=== PATIENT | male | born 1970 | race Caucasian/White ===

== ENCOUNTER 2017-02-24 17:14 | Emergency (ER) | payer BC, OTHER ==
[~2017-02-24] VITALS: Ht 180.3 cm; Wt 109.0 kg
[~2017-02-24 17:14] MED LIST: ANDROGEL TOP
[2017-02-24 17:16] VITALS: TEMP 36.9; Ht 180.3 cm; Wt 109.0 kg
[2017-02-24] MEDS ORDERED: ANDG TOP (17:27)
[2017-02-24] MEDS ORDERED: HYDROCODONE/ACETAMOPHEN 5/325MG TAB PO ONE (17:45)
--- NOTE | 2017-02-24 18:10 | DIAGNOSTIC IMAGING REPORT ---
RIGHT ELBOW MIN 3 VIEWS ROUTINE CLINICAL HISTORY: Right elbow pain. Possible biceps tendon tear. COMPARISON: None. DISCUSSION: No fractures or dislocations are visualized. If further evaluation of the suspected biceps tendon tear is desired, an MRI is considered the test of choice IMPRESSION: No fractures or dislocations identified. Electronically signed by: Jin Hernandez M.D. 02/24/2017 6:09 PM Dictated Date/Time: 02/24/2017 6:08 PM
[2017-02-24] MEDS ORDERED: HYDR-5688 PO (18:27)
[2017-02-24] MEDS ORDERED: NORCO 5/325MG HOME PACK PO ONE (18:30)
[2017-02-24 19:01] VITALS: BP 134/78; PULSE 72; O2SAT 98
--- NOTE | 2017-02-24 23:52 | EMERGENCY ROOM VISIT NOTE ---
ED Visit Note First contact with patient: 17:23 Chief Complaint: I think I tore something in my right arm. History of Present Illness: Mr. Nelson is a 48-year-old white male who ambulates into the ED accompanied by female friend planning of anterior right elbow/proximal forearm pain. Patient reports approximately 2 hours ago he was cutting down trees at his home to make way for a garage. He reports he picked up a log from the ground and threw the log off to the side. He reports when he did this he felt a tearing sensation in the anterior aspect of the right elbow. Since that time he has been having pain in the same area. He describes the pain as achy and burning. He rates his discomfort 8/10. His pain is nonradiating. His pain worsens with palpations in all movements of the elbow. He has not identified any alleviating factors related to the pain. He has not taken any medications for pain prior to arrival at the hospital. He denies any associated shoulder pain, upper arm pain, wrist pain, finger weakness /numbness/tingling. He denies any previous injuries or surgeries to this area. Review of Systems: As noted above in history of present illness. Past Medical History: Patient denies. Current Medications: Androgel. Allergies to Medications: Codeine; patient does not know the reaction, but recently reports he has taken hydrocodone for dental work and has had no allergic reactions. Social History: Patient is currently employed; he feels safe in his home environment; he admits to tobacco and alcohol use. Physical Examination: Vital Signs: Date Time Temp Pulse Resp B/P (MAP) Pulse Ox O2 Delivery O2 Flow Rate FiO2 02/24/17 19:01 72 18 134/78 98 02/24/17 17:16 36.9 90 20 130/85 99 Room Air GENERAL: 47-year-old male in mild to moderate distress due to pain, nontoxic- appearing, afebrile and hemodynamically stable. NEUROLOGICAL: Awake, alert and oriented to person, place and time. Answering questions appropriately and following commands. SKIN: Warm, dry and pink. No soft tissue eruptions or trauma noted. RIGHT UPPER EXTREMITY: No gross bony deformity. No tenderness in the shoulder or upper arm. In the upper arm there is bulging of the biceps muscle. Tenderness over the anterior elbow in the area of the biceps tendon insertion on the forearm; also the tendon is not palpable. No tenderness throughout the lateral or posterior elbow, forearm, wrist or hand. Patient refused range of motion exercises due to pain. The elbow was stabilized he does have full range of motion in flexion, extension and radial and ulnar deviation of the wrist and flexion and extension of all fingers. Throughout the hand the skin was warm and pink and capillary refill is brisk. He was able to distinguish light sensations through all dermatomes. ED Course: Patient is assessed as noted above. Patient's medication list was reviewed. Patient was given ice in one Brillion tablet 5/325 mg by mouth for pain. Right Elbow X-Rays: Was read by myself and the radiologist showing no acute fractures or dislocations. Patient's case was reviewed with Dr. Rehman; we agreed and diagnostic approach, treatment, disposition and plan. He did recommend that I consult Dr. Ruff. Patient's case was consulted with Dr. Ruff. He needed no additional imaging studies. He recommended elbow mobilization and sling with office follow-up. Patient was placed in a posterior elbow splint in position of comfort and then into a simple elbow sling. Patient was educated about today's findings and instructed on his treatment plan ; he verbalized understanding and agreement with this plan. Clinical Impression: Right biceps brachii distal tendon rupture. Disposition: Patient discharged home in stable condition; prior to departure he was reassessed and subjectively reported he was feeling better and rated his discomfort 4/10. Plan: Comfort measures including rest, ice, splint and sling use and a sliding pain scale of acetaminophen and Brillion were discussed with the patient; patient was given appropriate narcotic precautions and his name was checked on state database and no red flags are noted. Patient was encouraged to follow-up with Dr. Calix for definitive care and treatment. Patient was encouraged return ED for worsening/uncontrolled pain, uncontrolled swelling, arm/finger weakness/numbness/tingling or any new/concerning symptoms.
[2017-02-28] MEDS ORDERED: OXYC-57 PO (13:07)
== END 2017-02-24 19:03 | disposition home or self-care (01) ==
LOC: C.EDB 17:14 → C.EDD 19:03
DX: S46.211A Strain of muscle, fascia and tendon of other parts of biceps, right arm, initial encounter (principal); X50.9XXA Other and unspecified overexertion or strenuous movements or postures, initial encounter; Y93.H9 Activity, other involving exterior property and land maintenance, building and construction; Y99.8 Other external cause status; Y92.009 Unspecified place in unspecified non-institutional (private) residence as the place of occurrence of the external cause; Z72.0 Tobacco use

== ENCOUNTER → 2017-02-25 | Outpatient (CLI) | payer OTHER ==
[~2017-02-25] MED LIST changes: +ANDG TOP; -ANDROGEL TOP; +HYDR-5688 PO; +OXYC-57 PO
[2017-02-25 16:46] LABS: BASO % 0.3 %; BASO ABS # 0.03 K/uL (0-0.2); COMPLETE YES; HEMATOCRIT 45.1 % (42-52); IG% 0.4 %; LYMPH % 28.6 %; LYMPH ABS # 2.58 K/uL (1.2-3.4); MEAN CELL VOLUME 78.4 fL (80-100); MEAN CORPUSCULAR HEMOGLOBIN 24.7 pg (25-34); MEAN CORPUSCULAR HGB CONC 31.5 g/dl (32-36); MEAN PLATELET VOLUME 10.3 fL (7.4-10.4); MONO % 5.2 %; NEUT % 64.5 %; PLATELET COUNT 208 K/uL (130-400); RED BLOOD COUNT 5.75 M/uL (4.7-6.1); WHITE BLOOD COUNT 9.03 K/uL (4.8-10.8)
[2017-02-25 16:54] LABS: BLOOD UREA NITROGEN 16 mg/dl (7-18); BUN/CREATININE RATIO 15.9 (10-20); CALCIUM 8.6 mg/dl (8.5-10.1); CARBON DIOXIDE 29 mmol/L (21-32); CHLORIDE 108 mmol/L (98-107); GLUCOSE 80 mg/dl (70-99); POTASSIUM 3.9 mmol/L (3.5-5.1); SODIUM 141 mmol/L (136-145)
== END | disposition home or self-care (01) ==
LOC: C.LABBC 14:44
PROVIDERS: ATTEND Orthopaedic Surgery
DX: S46.211D Strain of muscle, fascia and tendon of other parts of biceps, right arm, subsequent encounter (principal); X58.XXXD Exposure to other specified factors, subsequent encounter

== ENCOUNTER → 2017-02-28 | Day surgery (SDC) | payer OTHER ==
[2017-02-27 07:32] VITALS: BMI 31.0
[~2017-02-28] VITALS: Ht 180.3 cm; Wt 108.4 kg
[~2017-02-28] MED LIST changes: +ATROPINE SULFATE 0.1 MG/ML 5ML SYR IV PRN; +BUPIVACAINE/EPINEPHRINE 0.25% 1:200,000 30 ML VIAL ONE; +CEFAZOLIN 1000MG/55 ML D5W IV SCH; +CEFAZOLIN 2000 MG/60 ML D5W IV SCH; +DEXAMETHASONE SOD INJ 4 MG/ML VIAL ONE; +EpHEDrine SULFATE INJ 50 MG/ML AMP IV PRN; +FENTANYL CITRATE INJ 50 MCG/1 ML 2 ML VIAL IV PRN; +FENTANYL CITRATE INJ 50 MCG/1 ML 2 ML VIAL ONE; +LACTATED RINGER'S 1000ML 1,000 ML IV SCH; +LIDOCAINE HCL 2% 2 ML VIAL (20MG/ML) ONE; +MIDAZOLAM HCL 1 MG/ML 2ML VIAL ONE; +ONDANSETRON INJ 2 MG/ML 2 ML VIAL IV PRN; +ONDANSETRON INJ 2 MG/ML 2 ML VIAL ONE; +OXYCODONE/ACETAMINOPHEN 5-325 TAB PO PRN; +PROPOFOL IV EMULSION 10 MG/ML 20 ML VIAL IV ONE; +ROPIVACAINE 0.5% 5 MG/ML 30 ML VIAL ONE; +SODIUM CHLORIDE 0.9% 1000ML 1,000 ML IV SCH
[2017-02-28 09:56] VITALS: Ht 180.3 cm; Wt 108.4 kg
--- NOTE | 2017-02-28 09:56 | History & Physical Bridge - [place] ---
H&P Re-Evaluation Bridge Note: I have examined the patient, reviewed the History & Physical and in the interval since the performance of the History & Physical I have noted the following changes of clinical significance: No changes noted
--- NOTE | 2017-02-28 13:09 | Discharge Instructions-SurgCtr ---
Discharge Instructions Date of Service Feb 28, 2017. Visit Reason for Visit: DISTAL BICEPS REPAIR Discharge Discharge Diagnosis / Problem: SAME ABOVE Discharge Goals Goal(s): Decrease discomfort, Improve function Activity Recommendations Activity Limitations: as noted below Lifting Limitations: until after follow-up appointment Exercise/Sports Limitations: until after follow-up appointment Shower/Bathe: keep incision dry Anesthesia . Post Anesthesia Instructions: If you have had General Anesthesia or IV Sedation: * Do not drive today. * Resume driving when surgeon permits. * Do not make important decisions or sign legal documents today. * Call surgeon for: 1. Temperature elevations greater than 101 degrees F. 2. Uncontrollable pain. 3. Excessive bleeding. 4. Persistent nausea and vomiting. 5. Medication intolerance (nausea, vomiting or rash). * For nausea and vomiting use only clear liquids such as: tea, soda, bouillon until nausea subsides, then gradually increase diet as tolerated. * If you have any concerns or questions, call your surgeon's office. If physician is unavailable and it is an emergency, call 911 or go to the nearest emergency room. . Instructions / Follow-Up Instructions / Follow-Up MEDICATIONS: * Resume previous medications unless instructed otherwise by your surgeon. * Always take pain medication on a full stomach or with food to avoid upset stomach. * Do not drink alcohol or drive while taking narcotics. * Ibuprofen or Tylenol may be taken if narcotic not needed. SPECIAL CARE INSTRUCTIONS: __ None _X_ Keep extremity elevated and iced x 48 hours; apply ice 20-30 minutes 8-10 times/day. May remove at night. _X_ Sling __24 hrs/day __ Remove at night __ Shoulder Immobilizer __ 24 hrs/day __ Remove at night _X_ Dressing _X_ Maintain until seen in office, may shower with plastic over site __ Remove dressings in 24-48 hours and then may shower __ Cover incisions with band-aids after showering __ Do not remove steri-strips CONTINUE TO WEAR SLING UNTIL SEEN IN THE OFFICE FOR FOLLOW UP Call physician if chills or temperature rises above 102 degrees or pain unrelieved by prescribed pain medications at . . Diet Recommendations Home Diet: resume previous diet Procedures Procedures Performed: Right Distal Biceps Tendon Repair Pending Studies Studies pending at discharge: no Medical Emergencies . Who to Call and When: Medical Emergencies: If at any time you feel your situation is an emergency, please call 911 immediately. . Non-Emergent Contact Non-Emergency issues call your: Primary Care Provider . . "Provider Documentation" section prepared by Guzman Colbert. .
[2017-02-28 13:16] VITALS: TEMP 36.5
--- NOTE | 2017-02-28 13:38 | Anesthesia Progress Nt - [facility] ---
Anesthesia Post Op Note Date & Time Feb 28, 2017 at 13:38 Vital Signs Pain Intensity: 0 Vital Signs Past 12 Hours Date Time Temp Pulse Resp B/P (MAP) Pulse Ox O2 Delivery O2 Flow Rate FiO2 02/28/17 13:08 74 21 02/28/17 13:08 75 21 93 02/28/17 13:06 137/93 02/28/17 13:06 36.4 73 17 137/93 94 Room Air 02/28/17 13:03 75 20 02/28/17 13:03 75 20 93 02/28/17 13:01 143/103 02/28/17 12:58 75 20 99 02/28/17 12:58 76 20 02/28/17 12:57 130/101 02/28/17 12:56 140/104 02/28/17 12:53 73 20 02/28/17 12:53 71 20 87 02/28/17 12:51 149/106 02/28/17 12:48 74 18 02/28/17 12:48 74 18 98 02/28/17 12:46 160/93 02/28/17 12:43 74 20 02/28/17 12:43 20 02/28/17 12:41 134/93 02/28/17 12:38 77 13 96 02/28/17 12:38 81 13 02/28/17 12:36 118/85 02/28/17 12:34 36.2 78 16 125/87 100 Mask 6 02/28/17 12:34 125/87 02/28/17 11:32 77 15 98 02/28/17 11:32 72 15 02/28/17 11:31 126/86 02/28/17 11:28 75 17 97 02/28/17 11:28 73 17 02/28/17 11:27 67 14 98 02/28/17 11:27 67 14 02/28/17 11:26 122/80 02/28/17 11:22 75 16 98 02/28/17 11:22 74 16 02/28/17 11:21 131/84 02/28/17 11:18 73 16 02/28/17 11:18 75 16 99 02/28/17 11:16 136/95 02/28/17 11:13 62 15 02/28/17 11:13 114 15 99 02/28/17 11:12 157/100 7/27/17 11:11 65 02/28/17 11:11 90 97 02/28/17 09:50 37.1 74 16 154/98 (116) 95 Room Air Notes Mental Status: alert / awake / arousable, participated in evaluation Pt Amnestic to Procedure: Yes Nausea / Vomiting: adequately controlled Pain: adequately controlled Airway Patency, RR, SpO2: stable & adequate BP & HR: stable & adequate Hydration State: stable & adequate Anesthetic Complications: no major complications apparent
[2017-02-28 13:52] VITALS: BP 135/88; PULSE 72; O2SAT 94
--- NOTE | 2017-02-28 14:32 | [facility] Post Operative Brief Note ---
Immediate Operative Summary Operative Date Feb 28, 2017. Pre-Operative Diagnosis Right Distal Biceps Tendon Tear Post-Operative Diagnosis Same Procedure(s) Performed Right Distal Biceps Tendon Repair Surgeon Dr. Owens Mangle Tender Surgeon(s) Whit Colbert PA-C Estimated Blood Loss 5 ml Findings as above Specimens None Complication(s) None Disposition Recovery Room / PACU
--- NOTE | 2017-02-28 16:08 | OPERATIVE REPORT ---
DATE OF OPERATION: 02/28/2017 PREOPERATIVE DIAGNOSIS: Right distal biceps tendon rupture. POSTOPERATIVE DIAGNOSIS: Same. PROCEDURE: Open right distal biceps tendon reattachment. SURGEON: Dr. Guzman Owens. BULK MAIL CLERK: Guzman Colbert PA-C, whose assistance was necessary for positioning the arm and helping with instrumentation. ANESTHESIA: General. COMPLICATIONS: None. CONDITION: Stable to PACU. INDICATIONS FOR PROCEDURE: Nolan is a pleasant 47-year-old male who recently felt a pop in the antecubital fossa of his right arm. He was out his house moving some logs so he could build a garage. He went to throw one of the logs and felt a pop in his elbow. Clinically, he examined like a distal biceps tendon rupture and elected to undergo open repair. DESCRIPTION OF PROCEDURE: On 02/28/2017, he arrived at [facility] for the above procedure. He was seen in the preoperative holding area and the operative extremity was identified and signed. He was given a preoperative antibiotic and taken back to the operating room, laid on the table in supine position and put under general anesthesia. The right elbow was then prepped and draped in sterile fashion. Time-out was done and the patient and operative extremity was properly identified. A longitudinal incision was made directly between the brachioradialis and the pronator mass. Dissection was taken down through the fascia with care not to disrupt the neurovascular structures. The radial tuberosity was easily identified. The long head of the biceps tendon was also easily pulled right out of the wound. The tendon was then whipstitched with an Arthrex FiberLoop suture. The FiberLoop was cut and an Arthrex biceps button that was placed on the tails of the suture. The radial tuberosity was then exposed. An Arthrex biceps pin was placed through the tuberosity and out the posterior cortex. An 8 mm hole was drilled in the radial tuberosity and the Arthrex biceps button that was passed through the posterior cortex and flipped. Tension slide technique was then used to advance the distal biceps tendon into the 8 mm hole. This gave good fixation. A single 7 x 10 mm biointerference screw was then placed. The tendon was pushed ulnarly. The suture tails were then tied. The wound was then irrigated and closed with 3-0 Vicryl and a 4-0 nylon mattress suture. He was placed in a soft dressing and taken to the postanesthesia care unit in stable condition. He tolerated the procedure well. I attest to the content of the Intraoperative Record and any orders documented therein. Any exception s are noted below.
== END | disposition home or self-care (01) ==
LOC: X.SURG 09:13
PROVIDERS: ATTEND Orthopaedic Surgery
DX: S53.491A Other sprain of right elbow, initial encounter (principal); X50.0XXA Overexertion from strenuous movement or load, initial encounter; F17.200 Nicotine dependence, unspecified, uncomplicated